=== PATIENT | female | born 2000 | race Caucasian/White ===

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

== ENCOUNTER 2024-04-23 23:27 | Emergency (ER) | payer OTHER ==
[~2024-04-23] VITALS: Ht 152.4 cm; Wt 59.0 kg
[~2024-04-23 23:27] MED LIST: KETO10TA2 PO
[2024-04-23] MEDS ORDERED: PRENATAL + DHA1 EAC1 PO (23:37)
[2024-04-24 01:30] LABS: HEMATOCRIT 38.1 % (36.0-45.00); HEMOGLOBIN 12.6 g/dL (12.0-15.00); MEAN CELL VOLUME 85.5 fL (80.00-100.00); MEAN CORPUSCULAR HEMOGLOBIN 28.2 pg (27.00-32.0); PLATELET COUNT 282 K/uL (150-450); RED BLOOD COUNT 4.46 M/uL (4.00-6.00); RED CELL DISTRIBUTION WIDTH 14.4 % (11.5-14.5)
[2024-04-24 01:59] LABS: INR 1.03; PARTIAL THROMBOPLASTIN TIME 30.8 SECONDS (22.0-34.0); PROTHROMBIN TIME 11.2 SECONDS (9.0-11.5)
[2024-04-24 02:23] LABS: CALCIUM 8.9 mg/dL (8.5-10.1); CREATININE SERUM 0.7 mg/dL (0.55-1.02); GFR 103.69; POTASSIUM 3.75 mEq/L (3.5-5.1)
[2024-04-24 02:42] LABS: URINE APPEARANCE Clear; URINE BILIRRUBIN Negative (NEGATIVE); URINE BLOOD Large; URINE COLOR Yellow; URINE GLUCOSE Negative (NEGATIVE); URINE KETONE Negative (NEGATIVE); URINE LEUKOCYTE Moderate; URINE NITRATE Negative; URINE PROTEIN Negative (NEGATIVE); URINE UROBILINOGEN 0.2 E.U./dl
[2024-04-24 02:46] LABS: URINE BACTERIA 505.2 uL (0.0-1933); URINE EPITHELIAL CELLS 40.9 uL (0.0-38.8); URINE RBC 5.8 uL (0.0-20.8); URINE WBC 76.6 uL (0.0-23.2)
[2024-04-24] MEDS ORDERED: CEPHALEXIN500 MG PO (03:44)
== END 2024-04-24 03:52 ==
LOC: ER 23:28
PROVIDERS: General Practice
DX: O20.8 Other hemorrhage in early pregnancy (principal); Z3A.01 Less than 8 weeks gestation of pregnancy; Z91.013 Allergy to seafood

== ENCOUNTER 2024-06-20 21:06 | Emergency (ER) | payer OTHER ==
[~2024-06-20] VITALS: Ht 152.4 cm; Wt 59.9 kg
[~2024-06-20 21:06] MED LIST changes: +CEPHALEXIN500 MG PO; +PRENATAL + DHA1 EAC1 PO
[2024-06-20] MEDS ORDERED: PROMETRIUM200 MG PO (21:18)
[2024-06-20 21:53] LABS: HEMATOCRIT 37.2 % (36.0-45.00); HEMOGLOBIN 12.6 g/dL (12.0-15.00); MEAN CELL VOLUME 84.6 fL (80.00-100.00); MEAN CORPUSCULAR HEMOGLOBIN 28.7 pg (27.00-32.0); MEAN CORPUSCULAR HGB CONC 33.9 g/dl (32.0-36.0); PLATELET COUNT 255 K/uL (150-450); RED BLOOD COUNT 4.39 M/uL (4.00-6.00); RED CELL DISTRIBUTION WIDTH 14.3 % (11.5-14.5)
[2024-06-20 22:35] LABS: PH,URINE 7.5 (5.0-8.0); URINE APPEARANCE Clear; URINE BILIRRUBIN Negative (NEGATIVE); URINE BLOOD Trace; URINE COLOR Yellow; URINE GLUCOSE Negative (NEGATIVE); URINE KETONE Negative (NEGATIVE); URINE LEUKOCYTE Large; URINE NITRATE Negative; URINE PROTEIN Negative (NEGATIVE); URINE UROBILINOGEN 0.2 E.U./dl
[2024-06-20 22:38] LABS: URINE BACTERIA 497.6 uL (0.0-1933); URINE EPITHELIAL CELLS 38.1 uL (0.0-38.8); URINE WBC 260.9 uL (0.0-23.2)
[2024-06-20 22:49] LABS: URINE RBC 1.6 uL (0.0-20.8)
[2024-06-20] MEDS ORDERED: PEPCID AC20 MG PO (22:58)
== END 2024-06-21 00:32 | disposition home or self-care (01) ==
LOC: ER 21:08
PROVIDERS: General Practice
DX: O23.42 Unspecified infection of urinary tract in pregnancy, second trimester (principal); N39.0 Urinary tract infection, site not specified; Z3A.14 14 weeks gestation of pregnancy; Z91.013 Allergy to seafood

== ENCOUNTER → 2024-07-17 | Emergency (ER) | payer OTHER ==
[~2024-07-17] VITALS: Ht 152.4 cm; Wt 60.3 kg
[~2024-07-17] MED LIST changes: +PEPCID AC20 MG PO; +PROMETRIUM200 MG PO
== END | disposition home or self-care (01) ==
LOC: ER 12:56
DX: O99.512 Diseases of the respiratory system complicating pregnancy, second trimester (principal); J06.9 Acute upper respiratory infection, unspecified; Z3A.18 18 weeks gestation of pregnancy; Z20.822 Contact with and (suspected) exposure to COVID-19; Z91.013 Allergy to seafood

== ENCOUNTER 2024-09-25 07:48 | Outpatient (CLI) | payer OTHER ==
[2024-09-25 07:40] VITALS: BP 103/67
[2024-09-25] MEDS ORDERED: RINGERS SOLUTION,LACTATED 1,000 ML IV SCH (08:30)
[2024-09-25 09:03] LABS: HEMATOCRIT 34.1 % (36.0-45.00); HEMOGLOBIN 11.6 g/dL (12.0-15.00); MEAN CELL VOLUME 85.5 fL (80.00-100.00); PLATELET COUNT 182 K/uL (150-450); RED BLOOD COUNT 3.99 M/uL (4.00-6.00); RED CELL DISTRIBUTION WIDTH 14.3 % (11.5-14.5)
[2024-09-25 09:23] LABS: PROTHROMBIN TIME 10.9 SECONDS (9.0-11.5)
[2024-09-25 09:32] LABS: URINE APPEARANCE Clear; URINE BILIRRUBIN Negative (NEGATIVE); URINE BLOOD Negative; URINE COLOR Yellow; URINE GLUCOSE Negative (NEGATIVE); URINE KETONE Negative (NEGATIVE); URINE LEUKOCYTE Large; URINE NITRATE Negative; URINE PROTEIN Negative (NEGATIVE); URINE UROBILINOGEN 0.2 E.U./dl
[2024-09-25 09:39] LABS: URINE BACTERIA 538.4 uL (0.0-1933); URINE EPITHELIAL CELLS 21.3 uL (0.0-38.8); URINE WBC 166.8 uL (0.0-23.2)
[2024-09-25 10:18] LABS: URINE CAST 0.29 uL (0.0-1.40); URINE RBC 0.8 uL (0.0-20.8)
[2024-09-25 10:30] LABS: ALBUMIN 2.8 gm/dL (3.4-5.0); BILIRUBIN TOTAL 0.23 mg/dL (0.3-1.2); CREATININE SERUM 0.51 mg/dL (0.55-1.02); GFR 149.44; GLOBULINA 3.4 G/DL (2.4-3.5); POTASSIUM 4.18 mEq/L (3.5-5.1); TOTAL PROTEIN 6.2 gm/dL (6.4-8.2)
[2024-09-25 11:07] VITALS: BP 99/63; O2SAT 97
[2024-09-25 14:49] VITALS: BP 99/63
== END 2024-09-25 14:49 | disposition home or self-care (01) ==
LOC: OBS/DEL 07:48
PROVIDERS: ATTEND Specialist
DX: O26.892 Other specified pregnancy related conditions, second trimester (principal); R10.2 Pelvic and perineal pain; O44.00 Complete placenta previa NOS or without hemorrhage, unspecified trimester; O36.8199 Decreased fetal movements, unspecified trimester, other fetus; O60.00 Preterm labor without delivery, unspecified trimester; Z3A.27 27 weeks gestation of pregnancy

== ENCOUNTER → 2024-11-01 | Outpatient (CLI) | payer OTHER | END | disposition home or self-care (01) | LOC: PRENATAL 12:58 | PROVIDERS: ATTEND Obstetrics & Gynecology Maternal & Fetal Medicine | DX: O26.849 Uterine size-date discrepancy, unspecified trimester (principal); O36.8199 Decreased fetal movements, unspecified trimester, other fetus; Z3A.33 33 weeks gestation of pregnancy ==

== ENCOUNTER 2024-11-29 14:17 | Inpatient (IN) | payer OTHER ==
[~2024-11-29] VITALS: Ht 152.4 cm; Wt 2.7 kg
[2024-11-29] MEDS ORDERED: AMPICILLIN TRI500 MG PO (14:22)
[2024-11-29 15:10] LABS: HEMATOCRIT 37.7 % (36.0-45.00); HEMOGLOBIN 12.6 g/dL (12.0-15.00); MEAN CELL VOLUME 82.8 fL (80.00-100.00); MEAN CORPUSCULAR HEMOGLOBIN 27.6 pg (27.00-32.0); MEAN CORPUSCULAR HGB CONC 33.3 g/dl (32.0-36.0); PLATELET COUNT 226 K/uL (150-450); RED BLOOD COUNT 4.55 M/uL (4.00-6.00)
[2024-11-29 15:11] LABS: URINE APPEARANCE Cloudy; URINE BILIRRUBIN Negative (NEGATIVE); URINE BLOOD Negative; URINE COLOR Yellow; URINE GLUCOSE Negative (NEGATIVE); URINE KETONE Negative (NEGATIVE); URINE LEUKOCYTE Large; URINE NITRATE Negative; URINE PROTEIN Negative (NEGATIVE); URINE UROBILINOGEN 0.2 E.U./dl
[2024-11-29 15:15] LABS: URINE BACTERIA 2002.4 uL (0.0-1933); URINE EPITHELIAL CELLS 60.6 uL (0.0-38.8); URINE WBC 265.6 uL (0.0-23.2)
[2024-11-29 15:31] LABS: INR 0.95; PARTIAL THROMBOPLASTIN TIME 26.4 SECONDS (22.0-34.0); PROTHROMBIN TIME 10.4 SECONDS (9.0-11.5)
[2024-11-29 15:35] LABS: URINE RBC 0.8 uL (0.0-20.8)
[2024-12-01 06:38] VITALS: BP 105/68
[2024-12-01] MEDS ORDERED: ERYTHROMYCIN BASE OPHT 1GM EACH TUBE OP ONE (07:56)
[2024-12-01] MEDS ORDERED: OXYTOCIN 10 UNITS/ML VIAL ONE (07:56)
[2024-12-01] MEDS ORDERED: CEFAZOLIN SODIUM 1,000 MG VIAL ONE ×2 (07:57→13:29)
[2024-12-01] MEDS ORDERED: CHLORHEXIDINE GLUCONATE 120 ML BOTTLE TOP ONE (09:19)
[2024-12-01] MEDS ORDERED: MORPHINE SULFATE 4 MG/ML VIAL IV ONE ×2 (12:20→12:50)
[2024-12-01] MEDS ORDERED: MORPHINE SULFATE 4 MG/ML CARTRIDGE IV PRN (13:15)
[2024-12-01] MEDS ORDERED: RINGERS SOLUTION,LACTATED 1,000 ML IV SCH (13:15)
[2024-12-01 13:59] VITALS: BP 100/60
[2024-12-01] MEDS ORDERED: CEFAZOLIN SODIUM 1,000 MG VIAL IV SCH (14:00)
[2024-12-01 18:23] VITALS: BP 105/68; BP 112/73
[2024-12-01] MEDS ORDERED: KETOROLAC TROMETHAMINE 60 MG VIAL IM ONE (21:00)
[2024-12-02] VITALS: BP 90/52
[2024-12-02 01:48] LABS: HEMATOCRIT 27.3 % (36.0-45.00); MEAN CELL VOLUME 84.2 fL (80.00-100.00); PLATELET COUNT 189 K/uL (150-450); RED BLOOD COUNT 3.24 M/uL (4.00-6.00); RED CELL DISTRIBUTION WIDTH 13.8 % (11.5-14.5)
[2024-12-02 01:49] LABS: MEAN CORPUSCULAR HEMOGLOBIN 27.7 pg (27.00-32.0)
[2024-12-02 08:29] VITALS: BP 103/67
[2024-12-02] MEDS ORDERED: ACETAMINOPHEN WITH CODEINE 1 UDTAB TABLET PO SCH (09:00)
[2024-12-02 16:00] VITALS: BP 90/60
[2024-12-02] MEDS ORDERED: PNV,CALCIUM 72/IRON/FOLIC ACID 1 TAB TABLET PO SCH (17:00)
[2024-12-02] MEDS ORDERED: FERROUS SULFATE 325 MG TABLET.EC PO SCH (17:00)
[2024-12-02] MEDS ORDERED: CITRIC ACID/SODIUM CITRATE 30 ML BLIST.PACK PO NR (17:00)
[2024-12-02 20:00] VITALS: BP 95/59
[2024-12-02] MEDS ORDERED: FAMOTIDINE/PF 20 MG/2 ML VIAL IV PUSH NR (21:00)
[2024-12-02 23:53] VITALS: BP 87/44
[2024-12-03 05:00] VITALS: BP 101/65
[2024-12-03 08:00] VITALS: BP 93/59
[2024-12-03 12:55] VITALS: BP 95/65
[2024-12-03 16:17] VITALS: BP 102/64
[2024-12-03 20:27] VITALS: BP 95/58; O2SAT 100
[2024-12-04 00:09] VITALS: BP 95/58
[2024-12-04 04:07] VITALS: BP 95/61
[2024-12-04] MEDS ORDERED: IBUPROFEN800 MG PO (07:49)
[2024-12-04] MEDS ORDERED: FERROUS SULFAT325 MG PO (07:49)
[2024-12-04 08:00] VITALS: BP 111/70
== END 2024-12-04 14:05 | disposition home or self-care (01) | DRG 787 ==
LOC: O/R 12-01 06:30 → OB/GYN 12-01 08:30
PROVIDERS: ADMIT Specialist; ATTEND Specialist
PROC: 0UB90ZZ Excision of Uterus, Open Approach (ICD-10-PCS; 2024-12-01)
PROC: 4A1HXCZ Monitoring of Products of Conception, Cardiac Rate, External Approach (ICD-10-PCS; 2024-12-01)
PROC: 10D00Z1 Extraction of Products of Conception, Low, Open Approach (ICD-10-PCS; principal; 2024-12-01 08:30)
DX: O32.1XX0 Maternal care for breech presentation, not applicable or unspecified (principal); O41.03X0 Oligohydramnios, third trimester, not applicable or unspecified; O34.10 Maternal care for benign tumor of corpus uteri, unspecified trimester; D25.9 Leiomyoma of uterus, unspecified; O82 Encounter for cesarean delivery without indication; O99.02 Anemia complicating childbirth; O75.89 Other specified complications of labor and delivery; Q78.9 Osteochondrodysplasia, unspecified; D64.9 Anemia, unspecified; Z37.0 Single live birth; Z3A.37 37 weeks gestation of pregnancy